=== PATIENT | male | born 1990 | race Caucasian/White ===

== ENCOUNTER 2018-12-06 17:35 | Emergency (ER) | payer SELFPAY ==
[~2018-12-06] VITALS: Ht 188 cm; Wt 133.8 kg
[2018-12-06] MEDS ORDERED: TETANUS,DIPTH,PERTUSS P/F (BOOSTRIX) 0.5 ML VIAL IM ONE (18:00)
[2018-12-06] MEDS ORDERED: LIDOCAINE 1% INJ 20 ML 20 ML VIAL INJ ONE (18:00)
--- NOTE | 2018-12-06 18:40 | ED Integumentary General ---
General Chief Complaint: Laceration Stated Complaint: L THUMB LAC Nursing Triage Note: AMBULATORY TO ED WITH C/O LAC TO LEFT THUMB AFTER CHOPPING SALAD. WRAPPED IN TOWEL FROM HOME. Source: patient Exam Limitations: no limitations History of Present Illness Date Seen by Provider: Dec 06, 2018 Time Seen by Provider: 17:49 Initial Comments 28-year-old male who presents to emergency room with complaints of laceration to his left thumb after chopping salad. He has a half circumferential laceration to his left thumb 1.5 cm and laceration with nail involvement. Timing/Duration: just prior to arrival Associated Symptoms: denies symptoms Allergies and Home Medications Allergies Coded Allergies: No Known Drug Allergies (Unverified , 12/06/18) Patient Home Medication List Home Medication List Reviewed: Yes Review of Systems Review of Systems Constitutional: see HPI; No chills, No fever Skin: see HPI, other (laceration to left thumb) All Other Systems Reviewed Negative Unless Noted: Yes Past Klvxene-Uvcqut-Nzgcsp Hx Past Med/Social Hx: Reviewed Nursing Past Med/Soc Hx Patient Social History Alcohol Use: Occasionally Uses Recreational Drug Use: Yes Drug of Choice: MARIJUANA Smoking Status: Current Someday Smoker Type Used: Electronic/Vapor Recent Foreign Travel: No Contact w/Someone Who Travel: No Recent Infectious Disease Expo: No Recent Hopitalizations: No Immunizations Up To Date Tetanus Booster (TDap): Less than 5yrs Seasonal Allergies Seasonal Allergies: No Past Medical History Surgeries: Yes (BILAT MENISCUS REPAIR) Orthopedic Respiratory: No Cardiac: Yes Hypertension Neurological: No Genitourinary: No Gastrointestinal: No Musculoskeletal: No Endocrine: No HEENT: No Cancer: No Psychosocial: No Integumentary: No Blood Disorders: No Family Medical History Reviewed Nursing Family Hx Physical Exam Vital Signs Vital Signs - First Documented 12/06/18 12/06/18 17:45 18:50 Temp 97.8 Pulse 68 Resp 18 B/P (MAP) 135/95 (108) Pulse Ox 100 Capillary Refill : Less Than 3 Seconds General Appearance: WD/WN, no apparent distress Cardiovascular: normal peripheral pulses, regular rate, rhythm, no edema, no gallop, no JVD, no murmur Respiratory: chest non-tender, lungs clear, normal breath sounds, no respiratory distress, no accessory muscle use Extremities: normal capillary refill Neurologic/Psychiatric: alert, normal mood/affect, oriented x 3 Skin: normal color, warm/dry Skin Problem Location: upper extremities (left thumb) Skin Problem Character: other (1.5 cm circumferential laceration to the left thumb) Procedures/Interventions Wound Location: Upper Extremities Other Wound Location Laceration left thumb Wound Length (cm): 1.5 Wound's Depth, Shape: superficial, nail-avulsed (partial) Wound Explored: clean Irrigated w/ Saline (ccs): 200 Betadine Prep?: Yes (Betasept) Anesthesia: 1% Lidocaine (without epinephrine) Volume Anesthetic (ccs): 2 Suture: Prolene Suture Size: 5-0 Number of Sutures: 4 Progress The wound was cleaned and irrigated with normal saline and Betasept. The laceration was anesthetized size with lidocaine without epinephrine approximately 2 ML's. The wound was closed with 4 simple interrupted sutures of 5-0 Prolene with one of the sutures being through the fingernail. Patient tolerated procedure well. Progress/Results/Core Measures Results/Orders My Orders Orders - JAVAN HICKMAN Lidocaine 1% Inj 20 Ml (Xylocaine 1% Inj (12/06/18 18:00) Dipht,Pertuss(Acell),Tet Adult (Boostrix (12/06/18 18:00) Vital Signs/I&O 12/06/18 12/06/18 17:45 18:50 Temp 97.8 97.8 Pulse 68 65 Resp 18 18 B/P (MAP) 135/95 (108) 130/85 (100) Pulse Ox 100 Blood Pressure Mean: 108 Departure Impression Primary Impression: Laceration Disposition: 01 HOME, SELF-CARE Condition: Stable/Unchanged Departure-Patient Inst. Decision time for Depature: 18:38 Referrals: NO,LOCAL PHYSICIAN (PCP/Family) Primary Care Physician Patient Instructions: Laceration Repair With Stitches (DC) Add. Discharge Instructions: Watch for signs of infection such as increased redness, swelling, drainage, pain. You may use Tylenol and ibuprofen as directed by the bottle for pain relief. Return back to the emergency room in 7 days to have the sutures removed. Do not submerge the thumb in any body of water. Change the dressing daily. All discharge instructions reviewed with patient and/or family. Voiced understanding. Images Extremities-Upper 1 - Laceration 1 - Laceration JAVAN HICKMAN Dec 06, 2018 18:40
[2018-12-06 18:50] VITALS: BP 130/85
--- OUTSIDE RECORDS SUMMARY | 2018-12-06 19:20 | XMS REPORT ---
Author Author YONI AMEZCUA Organization [facility] Address [address] [place] [address] Care Team Providers Care Animal Physiologist Name Role Phone YONI AMEZCUA Unavailable PROBLEMS Type Condition ICD9-CM Code [id number] Code Onset Dates Condition Status SNOMED Code Problem Morbid (severe) obesity due to excess calories E66.01 Active 587600697 Problem Essential hypertension I10 Active 57479789 Problem Bilateral carpal tunnel syndrome G56.03 Active [id number] ALLERGIES No Known Allergies SOCIAL HISTORY Never Assessed PLAN OF CARE VITAL SIGNS MEDICATIONS Unknown Medications RESULTS No Results PROCEDURES No Known procedures IMMUNIZATIONS No Known Immunizations MEDICAL (GENERAL) HISTORY Type Description Date Medical History hypertension Surgical History bilateral knee surgery-2006 and 2007 lateral miniscus
--- OUTSIDE RECORDS SUMMARY | 2018-12-06 19:20 | XMS REPORT ---
Author Author AMEZCUAYONI Caceres Organization [facility] Address [address] [place] [address] Care Team Providers Care Human Service Worker Name Role Phone AMEZCUANATALY CaceresELE Unavailable PROBLEMS Type Condition ICD9-CM Code [id number] Code Onset Dates Condition Status SNOMED Code Problem Morbid (severe) obesity due to excess calories E66.01 Active 038078541 Problem Essential hypertension I10 Active 25087092 Problem Bilateral carpal tunnel syndrome G56.03 Active [id number] ALLERGIES No Information SOCIAL HISTORY Never Assessed PLAN OF CARE VITAL SIGNS MEDICATIONS Unknown Medications RESULTS Name Result Date Reference Range THYROID ANALYZER 2016-12-01 TSH 2.480 0.450-4.500 A1C 2016-12-01 Hemoglobin A1c 5.3 4.8-5.6 CBC 2016-12-01 WBC 4.9 3.4-10.8 RBC 5.44 4.14-5.80 Hemoglobin 16.1 12.6-17.7 Hematocrit 48.7 37.5-51.0 MCV 90 79-97 MCH 29.6 26.6-33.0 MCHC 33.1 31.5-35.7 RDW 13.0 12.3-15.4 Platelets 244 150-379 Neutrophils 55 Lymphs 33 Monocytes 9 Eos 2 Basos 0 Neutrophils (Absolute) 2.7 1.4-7.0 Lymphs (Absolute) 1.7 0.7-3.1 Monocytes(Absolute) 0.4 0.1-0.9 Eos (Absolute) 0.1 0.0-0.4 Baso (Absolute) 0.0 0.0-0.2 Immature Granulocytes 1 Immature Grans (Abs) 0.0 0.0-0.1 LIPID PANEL 2016-12-01 Cholesterol, Total 235 100-199 Triglycerides 119 0-149 HDL Cholesterol 38 >39 VLDL Cholesterol Surya 24 5-40 LDL Cholesterol Calc 173 0-99 CMP 2016-12-01 Glucose, Serum 97 65-99 BUN 13 6-20 Creatinine, Serum 0.93 0.76-1.27 eGFR If NonAfricn Am 112 >59 eGFR If Africn Am 130 >59 BUN/Creatinine Ratio 14 9-20 Sodium, Serum 141 134-144 Potassium, Serum 4.6 3.5-5.2 Chloride, Serum 101 96-106 Carbon Dioxide, Total 24 18-29 Calcium, Serum 9.2 8.7-10.2 Protein, Total, Serum 6.4 6.0-8.5 Albumin, Serum 4.6 3.5-5.5 Globulin, Total 1.8 1.5-4.5 A/G Ratio 2.6 1.2-2.2 Bilirubin, Total 0.5 0.0-1.2 Alkaline Phosphatase, S 96 39-117 AST (SGOT) 25 0-40 ALT (SGPT) 44 0-44 PROCEDURES Procedure Date Ordered Result Body Site ASSAY THYROID STIM HORMONE December 01, 2016 GLYCATED HEMOGLOBIN TEST December 01, 2016 LIPID PANEL December 01, 2016 COMPLETE CBC W/AUTO DIFF WBC December 01, 2016 VENIPUNCT, ROUTINE* December 01, 2016 COMPREHEN METABOLIC PANEL December 01, 2016 IMMUNIZATIONS No Known Immunizations MEDICAL (GENERAL) HISTORY Type Description Date Medical History hypertension Surgical History bilateral knee surgery-2006 and 2008 lateral miniscus
--- OUTSIDE RECORDS SUMMARY | 2018-12-06 19:20 | XMS REPORT ---
Author Author AMEZCUAYOIN Caceres [facility] Address [address] [place] [address] Care Team Providers Care Flatwork Ironer Name Role Phone AMEZCUAYONI Caceres Unavailable PROBLEMS Type Condition ICD9-CM Code CAG35-AQ Code Onset Dates Condition Status SNOMED Code Problem Morbid (severe) obesity due to excess calories E66.01 Active 160822195 Problem Essential hypertension I10 Active 79829730 Problem Bilateral carpal tunnel syndrome G56.03 Active [id number] ALLERGIES No Known Allergies ENCOUNTERS Encounter Location Date Diagnosis [facility] [address] [address] 16 Aug, [address] [facility] [address] [address] 09 Aug, 2017 Cough R05 and Nonintractable episodic headache, unspecified headache type R51 [facility] [address] [address] Jul, Essential hypertension I10 and BMI 40.0-44.9, adult Z68.41 [facility] [address] [address] November, Encounter for routine adult health examination with abnormal findings Z00.01 and Essential hypertension I10 [facility] [address] [address] November, Encounter for routine adult health examination with abnormal findings Z00.01 ; Essential hypertension I10 ; Bilateral carpal tunnel syndrome G56.03 and Morbid (severe) obesity due to excess calories E66.01 [facility] [address] [place] [id number] [place] [id number] November, León THAKKAR [address] [facility] [id number] [place] [id number] Dec, Essential hypertension I10 [facility] [address] [place] [address] [id number] [place], [place] [id number] Dec, Essential hypertension I10 and Pulled muscle T14.8 IMMUNIZATIONS No Known Immunizations SOCIAL HISTORY Never Assessed REASON FOR VISIT Lab/3 month follow up and medication refill jeannette cochran PLAN OF CARE Activity Details Follow Up 3 Months Reason:CHM/HTN VITAL SIGNS Height 73.25 in 2017-07-15 Weight 315.1 lbs 2017-07-15 Temperature 98.8 degrees Fahrenheit 2017-07-15 Heart Rate 68 bpm 2017-07-15 Respiratory Rate 20 2017-07-15 BMI 41.28 kg/m2 2017-07-15 Blood pressure systolic 118 mmHg 2017-07-15 Blood pressure diastolic 70 mmHg 2017-07-15 MEDICATIONS Medication Instructions Dosage Frequency Start Date End Date Duration Status Fish Oil 1000 MG Orally Once a day 1 capsule 24h Active Vitamin B12 500 MCG Orally Once a day 2 tablets 24h Active Mucinex 600 MG Orally every 12 hrs 1 tablet as needed 12h Active Lisinopril 10 mg Orally Once a day 1 tablet 24h November, 90 days Active Lisinopril-Hydrochlorothiazide 10-12.5 MG Orally Once a day 1 tablet 24h Dec, 60 days Not-Taking RESULTS No Results PROCEDURES No Known procedures INSTRUCTIONS MEDICATIONS ADMINISTERED No Known Medications MEDICAL (GENERAL) HISTORY Type Description Date Medical History hypertension Surgical History bilateral knee surgery-2006 and 2007 lateral miniscus
== END 2018-12-06 18:51 | disposition home or self-care (01) ==
LOC: EDUNIT# 17:35 → ER 17:37
DX: S61.112A Laceration without foreign body of left thumb with damage to nail, initial encounter (principal); I10 Essential (primary) hypertension; F12.10 Cannabis abuse, uncomplicated; F17.290 Nicotine dependence, other tobacco product, uncomplicated; Z23 Encounter for immunization; Z98.890 Other specified postprocedural states; W26.8XXA Contact with other sharp object(s), not elsewhere classified, initial encounter; Y92.009 Unspecified place in unspecified non-institutional (private) residence as the place of occurrence of the external cause
CPT/HCPCS: 29130

== ENCOUNTER 2018-12-15 19:32 | Emergency (ER) | payer SELFPAY ==
[~2018-12-15] VITALS: Ht 188 cm; Wt 133.8 kg
[2018-12-15 19:45] VITALS: BP 145/90
== END 2018-12-15 19:46 | disposition home or self-care (01) ==
LOC: EDUNIT# 19:32 → ER 19:33
DX: S61.012D Laceration without foreign body of left thumb without damage to nail, subsequent encounter (principal); X58.XXXD Exposure to other specified factors, subsequent encounter

== ENCOUNTER 2020-04-03 14:53 | Emergency (ER) | payer SELFPAY ==
[~2020-04-03] VITALS: Ht 185.4 cm; Wt 136.0 kg
--- NOTE | 2020-04-03 14:55 | NUR ---
Neuro assessment performed by Ravinder Toure.
--- NOTE | 2020-04-03 15:04 | ED General ---
General Stated Complaint: HEAD INJ;LEFT FACIAL DROOP Source of Information: Patient Exam Limitations: No Limitations History of Present Illness Date Seen by Provider: Apr 03, 2020 Time Seen by Provider: 15:00 Initial Comments To ER by EMS with reports of headache, left-sided facial droop and left arm tingling. He did hit his head at work a few days ago and has a small abrasion to the forehead. This was on Tuesday. He has had no symptoms until today. He had just finished smoking marijuana when he saw a flash of light, felt a sharp pain in the left side of his head, felt like his left face was drooping and some tingling in the left arm. Upon arrival to ER he states that his vision is perfectly normal, his headache/pain is gone, does not feel like his face is drooping, but does have some persistent dullness to sensation in the left arm only. Timing/Duration: 1-2 Days Severity: Moderate Associated Systoms: Denies Symptoms Allergies and Home Medications Allergies Coded Allergies: No Known Drug Allergies (Unverified , 12/06/18) Patient Home Medication List Home Medication List Reviewed: Yes Review of Systems Review of Systems Constitutional: see HPI EENTM: see HPI Respiratory: no symptoms reported Cardiovascular: no symptoms reported Genitourinary: no symptoms reported Musculoskeletal: no symptoms reported Skin: no symptoms reported Psychiatric/Neurological: No Symptoms Reported Hematologic/Lymphatic: No Symptoms Reported Immunological/Allergic: no symptoms reported Past Dargzpo-Xcfryf-Eanxfb Hx Patient Social History Drug of Choice: MARIJUANA Type Used: Electronic/Vapor Recent Foreign Travel: No Contact w/Someone Who Travel: No Recent Hopitalizations: No Immunizations Up To Date Tetanus Booster (TDap): Less than 5yrs Seasonal Allergies Seasonal Allergies: No Past Medical History Surgeries: Yes (BILAT MENISCUS REPAIR) Orthopedic Respiratory: No Cardiac: Yes Hypertension Neurological: No Genitourinary: No Gastrointestinal: No Musculoskeletal: No Endocrine: No HEENT: No Cancer: No Psychosocial: No Integumentary: No Blood Disorders: No Physical Exam Vital Signs Vital Signs - First Documented 04/03/20 14:53 Temp 37.4 Pulse 118 Resp 20 B/P (MAP) 143/101 (115) Pulse Ox 96 O2 Delivery Room Air Capillary Refill : Height, Weight, BMI Height: 6'2.00" Weight: 295lbs. oz. 133.712165vf; 35.15 BMI Method:Stated General Appearance: No Apparent Distress, WD/WN, Anxious (he is anxious becka earing, talks at a high rate of speed), Obese Eyes: Bilateral Eye Normal Inspection, Bilateral Eye PERRL, Bilateral Eye Other (visual changes) HEENT: PERRL/EOMI, TMs Normal, Other (small abrasion to the midline of the forehead without swelling) Neck: Full Range of Motion, Normal Inspection Respiratory: No Accessory Muscle Use, No Respiratory Distress Cardiovascular: Regular Rate, Rhythm, Normal Peripheral Pulses Gastrointestinal: Non Tender, Soft Extremity: Normal Capillary Refill, Normal Inspection Neurologic/Psychiatric: Alert, Oriented x3 Skin: Normal Color, Warm/Dry Procedures/Interventions Suture Size: 5-0 Progress/Results/Core Measures Suspected Sepsis SIRS Temperature: Pulse: Respiratory Rate: Laboratory Tests 04/03/20 15:05: White Blood Count 4.9 Blood Pressure / Mean: Laboratory Tests 04/03/20 15:05: Creatinine 0.98, INR Comment 1.0, Platelet Count 216, Total Bilirubin 0.8 Results/Orders Lab Results Laboratory Tests Test 04/03/20 15:05 04/03/20 15:21 04/03/20 15:45 Range/Units White Blood Count 4.9 4.3-11.0 10^3/uL Red Blood Count 5.29 4.30-5.52 10^6/uL Hemoglobin 15.6 13.3-17.7 g/dL Hematocrit 47 40-54 % Mean Corpuscular Volume 88 80-99 fL Mean Corpuscular Hemoglobin 30 25-34 pg Mean Corpuscular Hemoglobin Concent 33 32-36 g/dL Red Cell Distribution Width 11.9 10.0-14.5 % Platelet Count 216 130-400 10^3/uL Mean Platelet Volume 9.5 9.0-12.2 fL Immature Granulocyte % (Auto) 1 % Neutrophils (%) (Auto) 50 42-75 % Lymphocytes (%) (Auto) 40 12-44 % Monocytes (%) (Auto) 8 0-12 % Eosinophils (%) (Auto) 1 0-10 % Basophils (%) (Auto) 0 0-10 % Neutrophils # (Auto) 2.4 1.8-7.8 10^3/uL Lymphocytes # (Auto) 1.9 1.0-4.0 10^3/uL Monocytes # (Auto) 0.4 0.0-1.0 10^3/uL Eosinophils # (Auto) 0.1 0.0-0.3 10^3/uL Basophils # (Auto) 0.0 0.0-0.1 10^3/uL Immature Granulocyte # (Auto) 0.1 0.0-0.1 10^3/uL Prothrombin Time 13.2 12.2-14.7 SEC INR Comment 1.0 0.8-1.4 Activated Partial Thromboplast Time 24 24-35 SEC D-Dimer <= 0.27 0.00-0.49 UG/ML Sodium Level 139 135-145 MMOL/L Potassium Level 3.1 L 3.6-5.0 MMOL/L Chloride Level 105 98-107 MMOL/L Carbon Dioxide Level 20 L 21-32 MMOL/L Anion Gap 14 5-14 MMOL/L Blood Urea Nitrogen 17 7-18 MG/DL Creatinine 0.98 0.60-1.30 MG/DL Estimat Glomerular Filtration Rate > 60 BUN/Creatinine Ratio 17 Glucose Level 140 H 70-105 MG/DL Calcium Level 9.0 8.5-10.1 MG/DL Corrected Calcium 8.5-10.1 MG/DL Total Bilirubin 0.8 0.1-1.0 MG/DL Aspartate Amino Transf (AST/SGOT) 27 5-34 U/L Alanine Aminotransferase (ALT/SGPT) 35 0-55 U/L Alkaline Phosphatase 83 40-136 U/L Troponin I < 0.028 <0.028 NG/ML Total Protein 6.8 6.4-8.2 GM/DL Albumin 4.6 H 3.2-4.5 GM/DL Glucometer 132 H 70-110 MG/DL My Orders Orders - JAYLA QUEEN APRN Cbc With Automated Diff (04/03/20 14:58) Protime With Inr (04/03/20 14:58) Partial Thromboplastin Time (04/03/20 14:58) Comprehensive Metabolic Panel (04/03/20 14:58) Fibrin Degradation Products (04/03/20 14:58) Troponin I (04/03/20 14:58) Ua Culture If Indicated (04/03/20 14:58) Chest 1 View, Ap/Pa Only (04/03/20 14:58) Ekg Tracing (04/03/20 14:58) Nothing By Mouth (04/03/20 Lunch) Accucheck Stat ONCE (04/03/20 14:58) Ed Iv/Invasive Line Start (04/03/20 14:58) Vital Signs Stroke Patient Q15M (04/03/20 14:58) O2 (04/03/20 14:58) Monitor-Rhythm Ecg Trace Only (04/03/20 14:58) Dysphagia Screening Tool (04/03/20 14:58) Lipid Panel (04/04/20 06:00) Ct Angio Head/Neck (04/03/20 14:58) Lorazepam Injection (Ativan Injection) (04/03/20 15:15) Drug Screen Stat (Urine) (04/03/20 15:04) Iohexol Injection (Omnipaque 350 Mg/Ml 1 (04/03/20 15:15) Received Contrast (Hold Metformin- Contr (04/03/20 15:15) Ns (Ivpb) (Sodium Chloride 0.9% Ivpb Bag (04/03/20 15:15) Medications Given in ED Current Medications Medications Dose Ordered Sig/Sameer Route Start Time Stop Time Status Last Admin Dose Admin Iohexol 75 ml ONCE ONCE IV 04/03/20 15:15 04/03/20 15:16 DC 04/03/20 15:26 75 ML Sodium Chloride 100 ml ONCE ONCE IV 04/03/20 15:15 04/03/20 15:16 DC 04/03/20 15:26 80 ML Vital Signs/I&O 04/03/20 14:53 Temp 37.4 Pulse 118 Resp 20 B/P (MAP) 143/101 (115) Pulse Ox 96 O2 Delivery Room Air Capillary Refill : Diagnostic Imaging Diagonstic Imaging: CT Comments NAME: ALESHA CASEY [facility] REC#: [id number] PT STATUS: REG ER : 1990 PHYSICIAN: JAYLA QUEEN APRN ADMIT DATE: 04/03/20/ER Signed Date of Exam:04/03/20 CT ANGIO HEAD/NECK PROCEDURE: CT angiography of the head and CT angiography of the neck with and without contrast. TECHNIQUE: Contiguous noncontrast images were obtained from the skull base through the vertex. After intravenous contrast administration, helical CT angiography of the neck was performed. Source data was reformatted into 3D MIP projections. Delayed post contrast acquisition was also obtained. Auto Exposure Controls were utilized during the CT exam to meet ALARA standards for radiation dose reduction. INDICATION: Left facial numbness. COMPARISON: No prior studies are available for comparison. FINDINGS: The pre contrast head CT demonstrates ventricles and sulci to be within normal limits. No sulcal effacement or midline shift is identified. No acute intra-axial or extra-axial hemorrhage is detected. Cisterns are patent. Visualized paranasal sinuses are clear. Delayed post contrast images are without abnormal enhancement. CT angiographic portion of the exam demonstrates a three-vessel branching pattern to the aortic arch. The carotid bifurcations are unremarkable. Right and left internal carotid arteries appear to be patent. Carotid siphons are unremarkable. The M1 and M2 branches of the middle cerebral arteries bilaterally are patent. No large branch occlusion is seen. There is no filling defect or thromboembolism. Right and left anterior cerebral arteries are widely patent. Left posterior cerebral artery is patent. There is origin to the right posterior cerebral artery with a patent PCOM. IMPRESSION: Unremarkable CT angiogram of the head and neck. No thromboembolism or large branch occlusion is identified. Dictated by: Dictated on workstation # [id number] Dict: 04/03/20 1549 Trans: 04/03/20 1601 [id number] [id number] Interpreted by: BRADLEY BENJAMIN MD Electronically signed by: BRADLEY BENJAMIN MD 04/03/20 1601 Departure Communication (Admissions) 1504-Gets an NIH of 1 for mild sensory loss left forearm. When advising pt that there is no apparent facial droop he replies "shit, maybe im just high". Impression Primary Impression: Paresthesia and pain of left extremity Additional Impression: Marijuana use Disposition: HOME, SELF-CARE Condition: Stable Departure-Patient Inst. Decision time for Depature: 16:07 Referrals: NO,LOCAL PHYSICIAN (PCP/Family) Primary Care Physician Patient Instructions: Paresthesia (DC) Add. Discharge Instructions: 1. Return to ER for any concerns 2. Follow-up with your doctor next week 3. NIH Stroke Scale NIH : Select: Initial Level of Consciousness: 0=Alert Level of Consciousness-Questio: 0=Answers both month/age LOC Commands: 0=Performs both tasks Gaze: 0=Normal Visual [place]: 0=No visual loss Facial Movement (Facial Paresi: 0=Normal symmetrical mnt Motor Function-Arms Right: 0=No drift Motor Function-Arms Left: 0=No drift Motor Function-Legs Right: 0=No drift Motor Function-Legs Left: 0=No drift Limb Ataxia: 0=Absent Sensory: 1=Mild to Moderate loss Best Language: 0=No aphasia Dysarthria: 0=Normal Extinction & Inattention: 0=No abnormality NIH Stroke Scale Score: 1 JAYLA QUEEN [employer]LECTRONICS MANUFACTURER Apr 03, 2020 15:04
[2020-04-03 15:13] LABS: BASOPHILS % (AUTO) 0 % (0-10); EOSINOPHILS # (AUTO) 0.1 10^3/uL (0.0-0.3); EOSINOPHILS % (AUTO) 1 % (0-10); HEMATOCRIT 47 % (40-54); HEMOGLOBIN 15.6 g/dL (13.3-17.7); LYMPHOCYTES # (AUTO) 1.9 10^3/uL (1.0-4.0); LYMPHOCYTES % (AUTO) 40 % (12-44); MEAN CORPUSCULAR HEMOGLOBIN 30 pg (25-34); MEAN CORPUSCULAR HGB CONC 33 g/dL (32-36); MEAN CORPUSCULAR VOLUME 88 fL (80-99); MEAN PLATELET VOLUME 9.5 fL (9.0-12.2); MONOCYTES # (AUTO) 0.4 10^3/uL (0.0-1.0); MONOCYTES % (AUTO) 8 % (0-12); NEUTROPHILS # (AUTO) 2.4 10^3/uL (1.8-7.8); NEUTROPHILS % (AUTO) 50 % (42-75); PLATELET COUNT 216 10^3/uL (130-400); WHITE BLOOD COUNT 4.9 10^3/uL (4.3-11.0)
[2020-04-03] MEDS ORDERED: HOLD METFORMIN - RECEIVED CONTRAST 20 ML VIAL IV SCH (15:15)
[2020-04-03] MEDS ORDERED: NS 100 ML (IVPB) BAG IV ONE (15:15)
[2020-04-03] MEDS ORDERED: LORazepam INJ 2 MG/ML (ATIVAN) VIAL IVP PRN (15:15)
[2020-04-03] MEDS ORDERED: IOHEXOL 350 MG/ML 100 ML (OMNIPAQUE 350) VIAL IV ONE (15:15)
[2020-04-03 15:22] LABS: ALBUMIN 4.6 GM/DL (3.2-4.5)
[2020-04-03 15:23] LABS: CHLORIDE 105 MMOL/L (98-107); POTASSIUM 3.1 MMOL/L (3.6-5.0); SODIUM 139 MMOL/L (135-145)
[2020-04-03 15:25] LABS: GLUCOSE 140 MG/DL (70-105); TOTAL PROTEIN 6.8 GM/DL (6.4-8.2)
[2020-04-03 15:26] LABS: CARBON DIOXIDE 20 MMOL/L (21-32)
[2020-04-03 15:27] LABS: BILIRUBIN,TOTAL 0.8 MG/DL (0.1-1.0)
[2020-04-03 15:28] LABS: ALKALINE PHOSPHATASE 83 U/L (40-136)
[2020-04-03 15:29] LABS: CREATININE SERUM 0.98 MG/DL (0.60-1.30); FIBRIN DEGRADATION PRODUCTS <= 0.27 UG/ML (0.00-0.49); GFR ESTIMATED > 60; PARTIAL THROMBOPLASTIN TIME 24 SEC (24-35); PROTHROMBIN TIME PATIENT 13.2 SEC (12.2-14.7)
--- NOTE | 2020-04-03 15:29 | Diagnostic Imaging Report ---
EXAMINATION: Chest 1 view. HISTORY: Left arm tingling. COMPARISON: None available. FINDINGS: The lung volumes are normal. No focal consolidation is seen. No large pleural effusion or pneumothorax is seen. The cardiomediastinal silhouette is normal in size and contour. No acute osseous abnormality is seen. IMPRESSION: No acute pleuroparenchymal process. Dictated by: Dictated on workstation # [id number]
[2020-04-03 15:30] LABS: BUN/CREATININE RATIO 17
[2020-04-03 15:32] LABS: ALANINE AMINOTRANSFERASE 35 U/L (0-55)
[2020-04-03 15:50] LABS: BILIRUBIN,URINE NEGATIVE (NEGATIVE); CLARITY,URINE CLEAR; COLOR,URINE YELLOW; GLUCOSE, URINE (UA) NEGATIVE (NEGATIVE); KETONES,URINE NEGATIVE (NEGATIVE); LEUKOCYTE ESTERASE ,URINE NEGATIVE (NEGATIVE); NITRITE,URINE NEGATIVE (NEGATIVE); PROTEIN,URINE NEGATIVE (NEGATIVE)
--- NOTE | 2020-04-03 16:00 | Diagnostic Imaging Report ---
PROCEDURE: CT angiography of the head and CT angiography of the neck with and without contrast. TECHNIQUE: Contiguous noncontrast images were obtained from the skull base through the vertex. After intravenous contrast administration, helical CT angiography of the neck was performed. Source data was reformatted into 3D MIP projections. Delayed post contrast acquisition was also obtained. Auto Exposure Controls were utilized during the CT exam to meet ALARA standards for radiation dose reduction. INDICATION: Left facial numbness. COMPARISON: No prior studies are available for comparison. FINDINGS: The pre contrast head CT demonstrates ventricles and sulci to be within normal limits. No sulcal effacement or midline shift is identified. No acute intra-axial or extra-axial hemorrhage is detected. Cisterns are patent. Visualized paranasal sinuses are clear. Delayed post contrast images are without abnormal enhancement. CT angiographic portion of the exam demonstrates a three-vessel branching pattern to the aortic arch. The carotid bifurcations are unremarkable. Right and left internal carotid arteries appear to be patent. Carotid siphons are unremarkable. The M1 and M2 branches of the middle cerebral arteries bilaterally are patent. No large branch occlusion is seen. There is no filling defect or thromboembolism. Right and left anterior cerebral arteries are widely patent. Left posterior cerebral artery is patent. There is origin to the right posterior cerebral artery with a patent PCOM. IMPRESSION: Unremarkable CT angiogram of the head and neck. No thromboembolism or large branch occlusion is identified. Dictated by: Dictated on workstation # [id number]
[2020-04-03 16:01] LABS: BACTERIA,URINE TRACE /HPF
[2020-04-03 16:07] LABS: GRANULAR CASTS,URINE 0-2 /LPF
[2020-04-03 16:08] LABS: AMPHETAMINE SCREEN, URINE NEGATIVE (NEGATIVE); BARBITURATE SCREEN URINE NEGATIVE (NEGATIVE); BENZODIAZEPINES SCREEN URINE NEGATIVE (NEGATIVE); CANNABINOID SCREEN, URINE POSITIVE (NEGATIVE); COCAINE SCREEN URINE NEGATIVE (NEGATIVE); METHADONE STAT NEGATIVE (NEGATIVE); METHAMPHETAMINE SCREEN URINE S NEGATIVE (NEGATIVE); OPIATE SCREEN URINE NEGATIVE (NEGATIVE); OXYCODONE STAT NEGATIVE (NEGATIVE); PROPOXYPHENE STAT NEGATIVE (NEGATIVE); TRICYCLIC ANTIDEPRESSANTS SCRE NEGATIVE (NEGATIVE)
[2020-04-03 16:15] VITALS: BP 140/91
== END 2020-04-03 16:16 | disposition home or self-care (01) ==
LOC: EDUNIT# 14:53 → ER 14:54
DX: R20.2 Paresthesia of skin (principal); F12.90 Cannabis use, unspecified, uncomplicated; S00.81XA Abrasion of other part of head, initial encounter; I10 Essential (primary) hypertension; W22.8XXA Striking against or struck by other objects, initial encounter; Y92.59 Other trade areas as the place of occurrence of the external cause
CPT/HCPCS: 36415; 70496; 70498; 71045; 80053; 80306; 81000; 82962; 84484; 85025; 85379; 85610; 85730; 93005; 93041

== ENCOUNTER 2021-01-09 20:06 | Emergency (ER) | payer BC ==
[~2021-01-09] VITALS: Ht 186 cm; Wt 146.2 kg
--- NOTE | 2021-01-09 21:09 | ED Cardiac General ---
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 DENIES PAIN AT THIS TIME. Source: patient Exam Limitations: no limitations History of Present Illness Date Seen by Provider: Jan 09, 2021 Time Seen by Provider: 20:29 Initial Comments Patient ER by private conveyance chief complaint that after smoking some weed eating a hamburger and playing video games he felt his heart racing. He had episodes like this throughout his life. No family history of this of the hypertension. He has a known history of hypertension throughout high school and was on medicines but lost his insurance and was lost to follow-up. He has not had this checked out since. Today he decided he wanted come in and get it checked out. He is not having any chest pain nausea fever chills cough shortness of air weakness nausea. After resting the symptoms went away. Allergies and Home Medications Allergies Coded Allergies: No Known Drug Allergies (Unverified , 12/06/18) Home Medications No Active Prescriptions or Reported Meds Patient Home Medication List Home Medication List Reviewed: Yes Review of Systems Review of Systems Constitutional: No chills, No diaphoresis EENTM: No Blurred Vision, No Double Vision Respiratory: Denies Cough, Denies Shortness of Air Cardiovascular: Denies Chest Pain, Denies Lightheadedness Gastrointestinal: Denies Constipated, Denies Diarrhea, Denies Nausea, Denies Vomiting Genitourinary: Denies Discharge, Denies Drainage Musculoskeletal: No back pain, No joint pain Skin: No pruritus, No rash Psychiatric/Neurological: Denies Headache, Denies Numbness All Other Systems Reviewed Negative Unless Noted: Yes Past Gwxreym-Kwohyh-Bnauum Hx Patient Social History Tobacco Use?: No Substance use?: Yes Substance type: Marijuana Alcohol Use?: Yes Alcohol Frequency: Once in a while Pt feels they are or have been: No Immunizations Up To Date Tetanus Booster (TDap): Less than 5yrs Seasonal Allergies Seasonal Allergies: No Past Medical History Surgeries: Yes (BILAT MENISCUS REPAIR, wisdom teeth) Orthopedic Respiratory: No Cardiac: Yes Hypertension Neurological: No Genitourinary: No Gastrointestinal: No Musculoskeletal: No Endocrine: No HEENT: No Cancer: No Psychosocial: No Integumentary: No Blood Disorders: No Physical Exam Vital Signs Vital Signs - First Documented 01/09/21 20:11 Temp 36.8 Pulse 108 Resp 18 B/P (MAP) 161/105 (123) Pulse Ox 98 O2 Delivery Room Air Capillary Refill : Less Than 3 Seconds Height, Weight, BMI Height: 6'2.00" Weight: 295lbs. oz. 133.110957fd; 42.00 BMI Method:Stated General Appearance: WD/WN, Anxious HEENT: PERRL/EOMI, Pharynx Normal, Moist Mucous Membranes Neck: Normal Inspection, Non Tender Respiratory: Lungs Clear, Normal Breath Sounds, No Accessory Muscle Use, No Respiratory Distress Cardiovascular: Regular Rate, Rhythm, No Edema, Normal Peripheral Pulses Extremity: Normal Capillary Refill, Normal Inspection Neurologic/Psychiatric: Alert, Oriented x3 Skin: Normal Color, Warm/Dry Procedures/Interventions Suture Size: 5-0 Progress/Results/Core Measures Results/Orders Lab Results Laboratory Tests Test 01/09/21 21:16 Range/Units White Blood Count 5.6 4.3-11.0 10^3/uL Red Blood Count 5.26 4.30-5.52 10^6/uL Hemoglobin 16.0 13.3-17.7 g/dL Hematocrit 47 40-54 % Mean Corpuscular Volume 90 80-99 fL Mean Corpuscular Hemoglobin 30 25-34 pg Mean Corpuscular Hemoglobin Concent 34 32-36 g/dL Red Cell Distribution Width 11.7 10.0-14.5 % Platelet Count 232 130-400 10^3/uL Mean Platelet Volume 10.1 9.0-12.2 fL Immature Granulocyte % (Auto) 1 % Neutrophils (%) (Auto) 63 42-75 % Lymphocytes (%) (Auto) 26 12-44 % Monocytes (%) (Auto) 8 0-12 % Eosinophils (%) (Auto) 2 0-10 % Basophils (%) (Auto) 0 0-10 % Neutrophils # (Auto) 3.5 1.8-7.8 10^3/uL Lymphocytes # (Auto) 1.4 1.0-4.0 10^3/uL Monocytes # (Auto) 0.5 0.0-1.0 10^3/uL Eosinophils # (Auto) 0.1 0.0-0.3 10^3/uL Basophils # (Auto) 0.0 0.0-0.1 10^3/uL Immature Granulocyte # (Auto) 0.1 0.0-0.1 10^3/uL Sodium Level 141 135-145 MMOL/L Potassium Level 4.0 3.6-5.0 MMOL/L Chloride Level 108 H 98-107 MMOL/L Carbon Dioxide Level 23 21-32 MMOL/L Anion Gap 10 5-14 MMOL/L Blood Urea Nitrogen 11 7-18 MG/DL Creatinine 0.92 0.60-1.30 MG/DL Estimat Glomerular Filtration Rate > 60 BUN/Creatinine Ratio 12 Glucose Level 124 H 70-105 MG/DL Calcium Level 9.4 8.5-10.1 MG/DL Corrected Calcium 9.2 8.5-10.1 MG/DL Total Bilirubin 0.3 0.1-1.0 MG/DL Aspartate Amino Transf (AST/SGOT) 17 5-34 U/L Alanine Aminotransferase (ALT/SGPT) 36 0-55 U/L Alkaline Phosphatase 105 40-136 U/L Troponin I < 0.028 <0.028 NG/ML C-Reactive Protein High Sensitivity 0.15 0.00-0.50 MG/DL Total Protein 6.4 6.4-8.2 GM/DL Albumin 4.2 3.2-4.5 GM/DL My Orders Orders - YOBANY REEVES Continuous Ekg Monitoring (01/09/21 21:03) Ekg Tracing (01/09/21 21:03) Cbc With Automated Diff (01/09/21 21:11) Comprehensive Metabolic Panel (01/09/21 21:11) Troponin I (01/09/21 21:11) Hs C Reactive Protein (01/09/21 21:11) Chest 1 View, Ap/Pa Only (01/09/21 21:11) Vital Signs/I&O 01/09/21 20:11 Temp 36.8 Pulse 108 Resp 18 B/P (MAP) 161/105 (123) Pulse Ox 98 O2 Delivery Room Air Blood Pressure Mean: 123 Progress Progress Note : Time: 21:15 Progress Note After his original presentation blood pressure 160/100 on rest he went down to 138/90. His heart rate has also gone down into the 80s. He certainly has a lot of anxiety however is not impossible that he has some kind of tachydysrhythmia so an EKG and some basic labs were obtained. If we did not catch anything on the monitor while he is here then we can send him on to either cardiology or encouraged him to follow-up with a primary care doctor for outpatient work-up. Initial ECG Impression Date: Jan 09, 2021 Initial ECG Impression Time: 21:08 Initial ECG Rate: 86 Initial ECG Rhythm: Normal Sinus Initial ECG Intervals: Normal Initial ECG Impression: Normal Comment Normal sinus rhythm without clinically relevant ST elevation or depression. Diagnostic Imaging Diagonstic Imaging: Xray Plain Films/CT/US/NM/MRI: chest Comments NAME: [facility] REC#: [id number] PT STATUS: REG ER : 1990 PHYSICIAN: YOBANY REEVES MD ADMIT DATE: 01/09/21/ER Draft Date of Exam:01/09/21 CHEST 1 VIEW, AP/PA ONLY Clinical indication: Patient with hypertension and heart racing. Exam: Portable chest x-ray upright view. Comparisons: Chest x-ray dated 04/03/2020. Findings: Lungs/pleura: Lungs are clear. There is no pneumothorax. There is no pleural effusion. Mediastinum: Unremarkable. Pulmonary vasculature: Unremarkable. Heart: Unremarkable. Bones/extrathoracic soft tissue: Unremarkable. Impression: There is no radiographic evidence of acute cardiopulmonary process. Dictated on workstation # [id number] Dict: 01/09/212129 Trans: 01/09/212134 [facility] [id number] Interpreted by: AIMEE HWANG MD Electronically signed by: Reviewed: Reviewed by Me Departure Impression Primary Impression: Palpitations Disposition: 01 HOME, SELF-CARE Condition: Stable Departure-Patient Inst. Decision time for Depature: 21:50 Referrals: TYLER ROMO MD NO,LOCAL PHYSICIAN (PCP) Primary Care Physician Patient Instructions: Palpitations (DC) Add. Discharge Instructions: I encourage you to follow-up with a primary care doctor of your choice. 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 Romo. If you have another episode of this go to your doctor and have them obtain an EKG while you are having the episode. Alternatively you may return to the ER if you are having this persistent episode. You may try blowing through an imagined coffee stir at a candle from across the room and bear down hard in your abdomen to try and stop the palpitations. If you start to have persistent chest pain, shortness of air or other worrisome symptoms then I encourage you to return to the ER promptly. All discharge instructions reviewed with patient and/or family. Voiced understanding. Scripts No Active Prescriptions or Reported Meds Copy Copies To 1: TYLER ROMO MD, TITUS J Jan 09, 2021 21:08
[2021-01-09 21:20] LABS: BASOPHILS % (AUTO) 0 % (0-10); EOSINOPHILS # (AUTO) 0.1 10^3/uL (0.0-0.3); EOSINOPHILS % (AUTO) 2 % (0-10); HEMATOCRIT 47 % (40-54); LYMPHOCYTES # (AUTO) 1.4 10^3/uL (1.0-4.0); LYMPHOCYTES % (AUTO) 26 % (12-44); MEAN CORPUSCULAR HEMOGLOBIN 30 pg (25-34); MEAN CORPUSCULAR HGB CONC 34 g/dL (32-36); MEAN CORPUSCULAR VOLUME 90 fL (80-99); MEAN PLATELET VOLUME 10.1 fL (9.0-12.2); MONOCYTES # (AUTO) 0.5 10^3/uL (0.0-1.0); MONOCYTES % (AUTO) 8 % (0-12); NEUTROPHILS # (AUTO) 3.5 10^3/uL (1.8-7.8); NEUTROPHILS % (AUTO) 63 % (42-75); PLATELET COUNT 232 10^3/uL (130-400); WHITE BLOOD COUNT 5.6 10^3/uL (4.3-11.0)
--- NOTE | 2021-01-09 21:35 | Diagnostic Imaging Report ---
Clinical indication: Patient with hypertension and heart racing. Exam: Portable chest x-ray upright view. Comparisons: Chest x-ray dated 04/03/2020. Findings: Lungs/pleura: Lungs are clear. There is no pneumothorax. There is no pleural effusion. Mediastinum: Unremarkable. Pulmonary vasculature: Unremarkable. Heart: Unremarkable. Bones/extrathoracic soft tissue: Unremarkable. Impression: There is no radiographic evidence of acute cardiopulmonary process. Dictated by: Dictated on workstation # [id number]
[2021-01-09 21:39] LABS: ALANINE AMINOTRANSFERASE 36 U/L (0-55); ALBUMIN 4.2 GM/DL (3.2-4.5); ALKALINE PHOSPHATASE 105 U/L (40-136); BILIRUBIN,TOTAL 0.3 MG/DL (0.1-1.0); BUN/CREATININE RATIO 12; CALCIUM 9.4 MG/DL (8.5-10.1); CARBON DIOXIDE 23 MMOL/L (21-32); CHLORIDE 108 MMOL/L (98-107); CREATININE SERUM 0.92 MG/DL (0.60-1.30); GFR ESTIMATED > 60; GLUCOSE 124 MG/DL (70-105); SODIUM 141 MMOL/L (135-145); TOTAL PROTEIN 6.4 GM/DL (6.4-8.2)
[2021-01-09 21:54] VITALS: BP 131/90
== END 2021-01-09 21:55 | disposition home or self-care (01) ==
LOC: EDUNIT# 20:06 → ER 20:08
DX: R00.2 Palpitations (principal); I10 Essential (primary) hypertension
CPT/HCPCS: 36415; 71045; 80053; 84484; 85025; 86141; 93041

== ENCOUNTER 2021-01-25 21:40 | Emergency (ER) | payer BC ==
[~2021-01-25] VITALS: Ht 186.7 cm; Wt 134.1 kg
[2021-01-25 23:01] LABS: BASOPHILS % (AUTO) 1 % (0-10); EOSINOPHILS # (AUTO) 0.1 10^3/uL (0.0-0.3); EOSINOPHILS % (AUTO) 2 % (0-10); HEMATOCRIT 46 % (40-54); HEMOGLOBIN 15.5 g/dL (13.3-17.7); LYMPHOCYTES # (AUTO) 2.1 10^3/uL (1.0-4.0); LYMPHOCYTES % (AUTO) 39 % (12-44); MEAN CORPUSCULAR HEMOGLOBIN 30 pg (25-34); MEAN CORPUSCULAR HGB CONC 34 g/dL (32-36); MEAN CORPUSCULAR VOLUME 90 fL (80-99); MEAN PLATELET VOLUME 9.9 fL (9.0-12.2); MONOCYTES # (AUTO) 0.5 10^3/uL (0.0-1.0); MONOCYTES % (AUTO) 9 % (0-12); NEUTROPHILS # (AUTO) 2.7 10^3/uL (1.8-7.8); NEUTROPHILS % (AUTO) 49 % (42-75); PLATELET COUNT 219 10^3/uL (130-400); WHITE BLOOD COUNT 5.5 10^3/uL (4.3-11.0)
[2021-01-25 23:13] LABS: ALBUMIN 4.4 GM/DL (3.2-4.5); CHLORIDE 106 MMOL/L (98-107); POTASSIUM 3.9 MMOL/L (3.6-5.0); SODIUM 142 MMOL/L (135-145)
[2021-01-25 23:14] LABS: CALCIUM 8.9 MG/DL (8.5-10.1)
[2021-01-25 23:15] LABS: GLUCOSE 101 MG/DL (70-105)
[2021-01-25 23:16] LABS: TOTAL PROTEIN 6.6 GM/DL (6.4-8.2)
[2021-01-25 23:17] LABS: CARBON DIOXIDE 22 MMOL/L (21-32); PROTHROMBIN TIME PATIENT 13.7 SEC (12.2-14.7)
[2021-01-25 23:18] LABS: BILIRUBIN,TOTAL 0.5 MG/DL (0.1-1.0)
[2021-01-25 23:19] LABS: ALKALINE PHOSPHATASE 85 U/L (40-136); CREATININE SERUM 0.87 MG/DL (0.60-1.30); GFR ESTIMATED 102
[2021-01-25 23:20] LABS: BUN/CREATININE RATIO 20; MAGNESIUM 2.1 MG/DL (1.6-2.4)
[2021-01-25 23:21] LABS: AMPHETAMINE SCREEN, URINE NEGATIVE (NEGATIVE); BARBITURATE SCREEN URINE NEGATIVE (NEGATIVE); BENZODIAZEPINES SCREEN URINE NEGATIVE (NEGATIVE); CANNABINOID SCREEN, URINE POSITIVE (NEGATIVE); COCAINE SCREEN URINE NEGATIVE (NEGATIVE); METHADONE STAT NEGATIVE (NEGATIVE); METHAMPHETAMINE SCREEN URINE S NEGATIVE (NEGATIVE); OPIATE SCREEN URINE NEGATIVE (NEGATIVE); OXYCODONE STAT NEGATIVE (NEGATIVE); PROPOXYPHENE STAT NEGATIVE (NEGATIVE); TRICYCLIC ANTIDEPRESSANTS SCRE NEGATIVE (NEGATIVE)
[2021-01-25 23:22] LABS: ALANINE AMINOTRANSFERASE 33 U/L (0-55)
--- NOTE | 2021-01-25 23:40 | ED Cardiac General ---
History of Present Illness General Chief Complaint: General Problems/Pain Stated Complaint: PECTORAL PAIN/ NOTICED VEINS Nursing Triage Note: pt has had pain in left chest wall below pec. he reports he can feel swollen veins under the skin. has one bruise of unknown origin on right forearm. c/o bilat let pain. left arm pain, but he does admit to carpal tunnel. reports all of these symptoms are giving him anxiety. Allergies and Home Medications Allergies Coded Allergies: No Known Drug Allergies (Unverified , 12/06/18) Home Medications No Active Prescriptions or Reported Meds Past Jaipdot-Cqvmya-Zesgpd Hx Patient Social History Tobacco Use?: No Smoking Status: Former Smoker Substance use?: Yes Alcohol Use?: Yes Alcohol type: Beer Alcohol Frequency: Rarely Immunizations Up To Date Tetanus Booster (TDap): Less than 5yrs Seasonal Allergies Seasonal Allergies: No Past Medical History Surgery/Hospitalization HX: seen in ER last week for similar c/o Surgeries: Yes (BILAT MENISCUS REPAIR, wisdom teeth) Orthopedic Respiratory: No Cardiac: Yes Hypertension Neurological: No Genitourinary: No Gastrointestinal: No Musculoskeletal: No Endocrine: No HEENT: No Cancer: No Psychosocial: No Integumentary: No Blood Disorders: No Physical Exam Vital Signs Vital Signs - First Documented 01/25/21 22:27 Temp 36.9 Pulse 73 Resp 18 B/P (MAP) 142/98 (113) Pulse Ox 97 O2 Delivery Room Air Capillary Refill : Less Than 3 Seconds Height, Weight, BMI Height: 6'2.00" Weight: 295lbs. oz. 133.718817wd; 38.00 BMI Method:Stated Procedures/Interventions Suture Size: 5-0 Progress/Results/Core Measures Results/Orders Lab Results Laboratory Tests Test 01/25/21 22:53 01/25/21 23:05 Range/Units White Blood Count 5.5 4.3-11.0 10^3/uL Red Blood Count 5.14 4.30-5.52 10^6/uL Hemoglobin 15.5 13.3-17.7 g/dL Hematocrit 46 40-54 % Mean Corpuscular Volume 90 80-99 fL Mean Corpuscular Hemoglobin 30 25-34 pg Mean Corpuscular Hemoglobin Concent 34 32-36 g/dL Red Cell Distribution Width 11.8 10.0-14.5 % Platelet Count 219 130-400 10^3/uL Mean Platelet Volume 9.9 9.0-12.2 fL Immature Granulocyte % (Auto) 1 % Neutrophils (%) (Auto) 49 42-75 % Lymphocytes (%) (Auto) 39 12-44 % Monocytes (%) (Auto) 9 0-12 % Eosinophils (%) (Auto) 2 0-10 % Basophils (%) (Auto) 1 0-10 % Neutrophils # (Auto) 2.7 1.8-7.8 10^3/uL Lymphocytes # (Auto) 2.1 1.0-4.0 10^3/uL Monocytes # (Auto) 0.5 0.0-1.0 10^3/uL Eosinophils # (Auto) 0.1 0.0-0.3 10^3/uL Basophils # (Auto) 0.0 0.0-0.1 10^3/uL Immature Granulocyte # (Auto) 0.1 0.0-0.1 10^3/uL Prothrombin Time 13.7 12.2-14.7 SEC INR Comment 1.0 0.8-1.4 Activated Partial Thromboplast Time 29 24-35 SEC Sodium Level 142 135-145 MMOL/L Potassium Level 3.9 3.6-5.0 MMOL/L Chloride Level 106 98-107 MMOL/L Carbon Dioxide Level 22 21-32 MMOL/L Anion Gap 14 5-14 MMOL/L Blood Urea Nitrogen 17 7-18 MG/DL Creatinine 0.87 0.60-1.30 MG/DL Estimat Glomerular Filtration Rate 102 BUN/Creatinine Ratio 20 Glucose Level 101 70-105 MG/DL Calcium Level 8.9 8.5-10.1 MG/DL Corrected Calcium 8.6 8.5-10.1 MG/DL Magnesium Level 2.1 1.6-2.4 MG/DL Total Bilirubin 0.5 0.1-1.0 MG/DL Aspartate Amino Transf (AST/SGOT) 18 5-34 U/L Alanine Aminotransferase (ALT/SGPT) 33 0-55 U/L Alkaline Phosphatase 85 40-136 U/L Myoglobin 42.8 10.0-92.0 NG/ML Troponin I < 0.028 <0.028 NG/ML B-Type Natriuretic Peptide < 10.0 <100.0 PG/ML Total Protein 6.6 6.4-8.2 GM/DL Albumin 4.4 3.2-4.5 GM/DL Urine Opiates Screen NEGATIVE NEGATIVE Urine Oxycodone Screen NEGATIVE NEGATIVE Urine Methadone Screen NEGATIVE NEGATIVE Urine Propoxyphene Screen NEGATIVE NEGATIVE Urine Barbiturates Screen NEGATIVE NEGATIVE Ur Tricyclic Antidepressants Screen NEGATIVE NEGATIVE Urine Phencyclidine Screen NEGATIVE NEGATIVE Urine Amphetamines Screen NEGATIVE NEGATIVE Urine Methamphetamines Screen NEGATIVE NEGATIVE Urine Benzodiazepines Screen NEGATIVE NEGATIVE Urine Cocaine Screen NEGATIVE NEGATIVE Urine Cannabinoids Screen POSITIVE H NEGATIVE My Orders Orders - RASHARD LORA DO BNP (01/25/21 22:42) Cbc With Automated Diff (01/25/21 22:42) Comprehensive Metabolic Panel (01/25/21 22:42) Drug Screen Stat (Urine) (01/25/21 22:42) Troponin I (01/25/21 22:42) Magnesium (01/25/21 22:42) Chest 1 View, Ap/Pa Only (01/25/21 22:42) Ekg Tracing (01/25/21 22:42) Myoglobin Serum (01/25/21 22:42) Protime With Inr (01/25/21 22:42) Partial Thromboplastin Time (01/25/21 22:42) Monitor-Rhythm Ecg Trace Only (01/25/21 22:42) Vital Signs/I&O 01/25/21 22:27 Temp 36.9 Pulse 73 Resp 18 B/P (MAP) 142/98 (113) Pulse Ox 97 O2 Delivery Room Air Blood Pressure Mean: 113 Departure Impression Primary Impression: LEFT ANTERIOR CHEST WALL PAIN Additional Impression: Anxiety Disposition: 01 HOME, SELF-CARE Condition: Stable Departure-Patient Inst. [place] [facility] [place] Instructions: Anxiety, Adult ED, Costochondritis (DC) Add. Discharge Instructions: TYLENOL AND MOTRIN NEEDED FOR PAIN FOLLOW UP WITH [facility] THIS WEEK FOR FURTHER CARE All discharge instructions reviewed with patient and/or family. Voiced understanding. Scripts No Active Prescriptions or Reported Meds RASHARD LORA DO Jan 25, 2021 23:40
[2021-01-26] VITALS: BP 135/89
--- NOTE | 2021-01-26 06:10 | Diagnostic Imaging Report ---
Clinical indication: Patient with chest pain. Exam: Portable chest x-ray upright view. Comparisons: Chest x-ray dated 01/09/2021. Findings: Lungs/pleura: Lungs are clear. There is no pneumothorax. There is no pleural effusion. Mediastinum: Unremarkable. Pulmonary vasculature: Unremarkable. Heart: Unremarkable. Bones/extrathoracic soft tissue: Unremarkable. Impression: There is no radiographic evidence of acute cardiopulmonary process. Dictated by: Dictated on workstation # [id number]
== END 2021-01-26 | disposition home or self-care (01) ==
LOC: EDUNIT# 21:40 → ER 21:44
DX: R07.89 Other chest pain (principal); F41.9 Anxiety disorder, unspecified; I10 Essential (primary) hypertension; Z87.891 Personal history of nicotine dependence
CPT/HCPCS: 36415; 71045; 80053; 80306; 83735; 83874; 83880; 84484; 85025; 85610; 85730; 93005

== ENCOUNTER 2022-05-24 13:53 | Emergency (ER) | payer BC ==
[~2022-05-24] VITALS: Ht 185.4 cm; Wt 138.0 kg
--- NOTE | 2022-05-24 15:10 | Diagnostic Imaging Report ---
INDICATION: Shortness of breath. Comparison with 01/25/2021. FINDINGS: Portable chest. The lungs are well aerated and clear. There is no air trapping. The heart is not enlarged. No pulmonary edema. No hilar adenopathy. No pneumothorax or pleural effusion. IMPRESSION: Normal portable chest. Dictated by: Dictated on workstation # [id number]
[2022-05-24] MEDS ORDERED: BENZ100C18 PO (15:32)
--- NOTE | 2022-05-24 15:33 | ED Cough/URI ---
General Chief Complaint: COVID19 Suspect/Confirmed Stated Complaint: COVID Nursing Triage Note: PT TO RM 10 WITH CC OF SOB, DIZZINESS AND CONGESTION. PT STATES TESTED POSITIVE FOR COVID 05/21/22. History of Present Illness Date Seen by Provider: May 24, 2022 Time Seen by Provider: 13:56 Initial Comments Patient is a 31-year-old male who presents to the emergency department for evaluation of shortness of breath, dizziness, and nasal congestion that been present for 3 to 4 days. Patient tested positive for COVID on 05/21. He denies any chest pain. Has not taken anything for the symptoms today. Allergies and Home Medications Allergies Coded Allergies: No Known Drug Allergies (Unverified , 12/06/18) Patient Home Medication List Home Medication List Reviewed: Yes Benzonatate (Tessalon Perles) 100 Mg Capsule, 200 MG PO Q8H PRN for COUGH Prescribed by: Grupo Crum on 05/24/22 1532 Review of Systems Review of Systems Constitutional: see HPI, dizziness EENTM: no symptoms reported Respiratory: see HPI, cough, short of breath Cardiovascular: no symptoms reported Gastrointestinal: no symptoms reported Genitourinary: no symptoms reported Musculoskeletal: no symptoms reported Skin: no symptoms reported Past Imhcelj-Qrzsnq-Ocsjoi Hx Patient Social History Tobacco Use?: No Substance use?: Yes Substance type: Marijuana Substance frequency: Rarely Alcohol Use?: No Pt feels they are or have been: No Immunizations Up To Date Tetanus Booster (TDap): Less than 5yrs Seasonal Allergies Seasonal Allergies: No Past Medical History Surgery/Hospitalization HX: seen in ER last week for similar c/o Surgeries: Yes (BILAT MENISCUS REPAIR, wisdom teeth) Orthopedic Respiratory: No Cardiac: No Neurological: No Genitourinary: No Gastrointestinal: No Musculoskeletal: No Endocrine: No HEENT: No Cancer: No Psychosocial: Yes Anxiety Integumentary: No Blood Disorders: No Physical Exam Vital Signs - First Documented 05/24/22 13:56 Temp 37.7 Pulse 87 Resp 20 B/P (MAP) 186/111 (136) Pulse Ox 97 O2 Delivery Room Air Capillary Refill : Less Than 3 Seconds Height: 6'2.00" Weight: 295lbs. oz. 133.125231to; 40.00 BMI Method:Stated General Appearance: WD/WN, no apparent distress HEENT: PERRL/EOMI, normal ENT inspection, TMs normal, pharynx normal Neck: non-tender, full range of motion, supple, normal inspection Respiratory: chest non-tender, lungs clear, normal breath sounds, no respiratory distress, no accessory muscle use Cardiovascular: regular rate, rhythm Gastrointestinal: normal bowel sounds, non tender, soft Extremities: normal range of motion, non-tender, normal inspection, no pedal edema Neurologic/Psychiatric: no motor/sensory deficits, alert, normal mood/affect, oriented x 3 Skin: normal color, warm/dry Procedures/Interventions Suture Size: 5-0 Progress/Results/Core Measures Suspected Sepsis SIRS Temperature: Pulse: 87 Respiratory Rate: 20 Blood Pressure 186 /111 Mean: 136 Results/Orders My Orders Orders - GRUPO CRUM APRN Chest 1 View, Ap/Pa Only (05/24/22 14:24) Vital Signs/I&O 05/24/22 05/24/22 13:56 15:37 Temp 37.7 Pulse 87 79 Resp 20 18 B/P (MAP) 186/111 (136) 168/109 Pulse Ox 97 97 O2 Delivery Room Air Room Air Capillary Refill : Less Than 3 Seconds Blood Pressure Mean: 136 Progress Note : Progress Note Patient is nontoxic and well-hydrated on exam. No adventitious lung sounds or increased work of breathing noted. Vital signs are reassuring. No focal neurologic deficits appreciated. Chest x-ray obtained which is acutely negative. Patient symptomology are consistent with known COVID symptoms. No indication for further diagnostic testing at this time. Follow-up with PCP. Return precautions for urgent symptomology discussed. Patient verbalized understanding. Departure Impression Primary Impression: COVID-19 Disposition: 01 HOME, SELF-CARE Condition: Stable Departure-Patient Inst. Decision time for Depature: 15:30 Referrals: MELITON ZARATE DO (PCP/Family) Primary Care Physician Patient Instructions: COVID-19 (DC) Scripts Benzonatate (TESSALON PERLES) 100 Mg Capsule 200 MG PO Q8H PRN for COUGH for 5 Days, #30 CAP 0 Refills Prov: GRUPO CRUM APRN 05/24/22 GRUPO CRUM APRN May 24, 2022 15:32
[2022-05-24 15:37] VITALS: BP 168/109
== END 2022-05-24 15:37 | disposition home or self-care (01) ==
LOC: EDUNIT# 13:53 → ER 13:56
DX: U07.1 COVID-19 (principal)
CPT/HCPCS: 71045

== ENCOUNTER 2022-08-16 09:58 | Emergency (ER) | payer BC ==
[~2022-08-16 09:58] MED LIST: BENZ100C18 PO
--- NOTE | 2022-08-16 10:17 | ED Chest Pain ---
General Chief Complaint: Chest Pain Stated Complaint: CHEST AND LT ARM PAIN Source: patient Exam Limitations: no limitations History of Present Illness Date Seen by Provider: Aug 16, 2022 Time Seen by Provider: 10:00 Initial Comments 32yoM with no pertinent PMH coming in due to chest pain. Pain started yesterday and radiates to his left shoulder. He states it feels similar to indigestion he had in the past. When he takes Tums it does help with the pain which she last took about an hour prior to arrival. He denies any cardiac history, no history of DVT or PE, no hemoptysis, no lower extremity swelling or pain, no recent surgery within the past month, no recent long travel, no shortness of breath, fever, cough, nausea, vomiting, diarrhea, or any other concerns. He does not smoke cigarettes. Allergies and Home Medications Allergies Coded Allergies: No Known Drug Allergies (Unverified , 12/06/18) Patient Home Medication List Home Medication List Reviewed: Yes Benzonatate (Tessalon Perles) 100 Mg Capsule, 200 MG PO Q8H PRN for COUGH Prescribed by: Brandon Crum on 05/24/22 1532 Review of Systems Review of Systems Constitutional: No fever EENTM: No Symptoms Reported Respiratory: No Symptoms Reported Cardiovascular: See HPI Gastrointestinal: No Symptoms Reported Genitourinary: No Symptoms Reported Musculoskeletal: no symptoms reported Skin: no symptoms reported Psychiatric/Neurological: No Symptoms Reported Endocrine: No Symptoms Reported Hematologic/Lymphatic: No Symptoms Reported All Other Systems Reviewed Negative Unless Noted: Yes Past Ygcfvsb-Xaomii-Yajmof Hx Patient Social History Tobacco Use?: No Substance use?: Yes Substance type: Marijuana Alcohol Use?: Yes Alcohol Frequency: Once in a while Pt feels they are or have been: No Immunizations Up To Date Tetanus Booster (TDap): Less than 5yrs Influenza Vaccine Up-to-Date: No; Not Current First/Initial COVID19 Vaccinat: 2020 Second COVID19 Vaccination Kevin: NO Third COVID19 Vaccination Date: NO 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 oz. [id number]; 40.00 BMI Method:Stated General Appearance: No Apparent Distress, WD/WN HEENT: PERRL/EOMI, Normal ENT Inspection, Pharynx Normal Neck: Full Range of Motion, Normal Inspection, Non Tender, Supple Respiratory: Chest Non Tender, Lungs Clear, Normal Breath Sounds, No Accessory Muscle Use, No Respiratory Distress Cardiovascular: Regular Rate, Rhythm, No Edema, Normal Peripheral Pulses Gastrointestinal: Normal Bowel Sounds, Non Tender, Soft Extremity: Normal Capillary Refill, Normal Inspection, Normal Range of Motion, Non Tender, No Calf Tenderness, No Pedal Edema Neurologic/Psychiatric: Alert, No Motor/Sensory Deficits, Normal Mood/Affect Skin: Normal Color, Warm/Dry Lymphatic: No Adenopathy Procedures/Interventions Suture Size: 5-0 Progress/Results/Core Measures Results/Orders Lab Results Laboratory Tests Test 08/16/22 10:10 Range/Units White Blood Count 4.9 4.3-11.0 10^3/uL Red Blood Count 5.34 4.30-5.52 10^6/uL Hemoglobin 15.9 13.3-17.7 g/dL Hematocrit 48 40-54 % Mean Corpuscular Volume 89 80-99 fL Mean Corpuscular Hemoglobin 30 25-34 pg Mean Corpuscular Hemoglobin Concent 34 32-36 g/dL Red Cell Distribution Width 12.1 10.0-14.5 % Platelet Count 215 130-400 10^3/uL Mean Platelet Volume 9.7 9.0-12.2 fL Immature Granulocyte % (Auto) 2 % Neutrophils (%) (Auto) 58 42-75 % Lymphocytes (%) (Auto) 28 12-44 % Monocytes (%) (Auto) 10 0-12 % Eosinophils (%) (Auto) 2 0-10 % Basophils (%) (Auto) 1 0-10 % Neutrophils # (Auto) 2.9 1.8-7.8 10^3/uL Lymphocytes # (Auto) 1.4 1.0-4.0 10^3/uL Monocytes # (Auto) 0.5 0.0-1.0 10^3/uL Eosinophils # (Auto) 0.1 0.0-0.3 10^3/uL Basophils # (Auto) 0.0 0.0-0.1 10^3/uL Immature Granulocyte # (Auto) 0.1 0.0-0.1 10^3/uL Sodium Level 138 135-145 MMOL/L Potassium Level 3.8 3.6-5.0 MMOL/L Chloride Level 100 98-107 MMOL/L Carbon Dioxide Level 27 21-32 MMOL/L Anion Gap 11 5-14 MMOL/L Blood Urea Nitrogen 16 7-18 MG/DL Creatinine 0.93 0.60-1.30 MG/DL Estimat Glomerular Filtration Rate 111 BUN/Creatinine Ratio 17 Glucose Level 101 70-105 MG/DL Calcium Level 9.7 8.5-10.1 MG/DL Corrected Calcium 9.3 8.5-10.1 MG/DL Total Bilirubin 0.8 0.1-1.0 MG/DL Aspartate Amino Transf (AST/SGOT) 23 5-34 U/L Alanine Aminotransferase (ALT/SGPT) 48 0-55 U/L Alkaline Phosphatase 77 40-136 U/L Total Protein 6.9 6.4-8.2 GM/DL Albumin 4.5 3.2-4.5 GM/DL Lipase 22 8-78 U/L My Orders Orders - SAYDA MITCHELL MD Ekg Tracing (08/16/22 10:10) Chest 1 View, Ap/Pa Only (08/16/22 10:18) Ekg Tracing (08/16/22 10:18) Lidocaine 2% Viscous 15 Ml (Xylocaine Vi (08/16/22 10:30) Famotidine Tablet (Pepcid Tablet) (08/16/22 10:18) Antacid Suspension (Mylanta Suspension (08/16/22 10:30) Cbc With Automated Diff (08/16/22 10:22) Comprehensive Metabolic Panel (08/16/22 10:22) Lipase (08/16/22 10:22) Troponin I Janes (08/16/22 10:22) Medications Given in ED Current Medications Medications Dose Ordered Sig/Sameer Route Start Time Stop Time Status Last Admin Dose Admin Al Hydrox/Mg Hydrox/Simethicone 30 ml ONCE ONCE PO 08/16/22 10:30 08/16/22 10:31 DC 08/16/22 10:33 30 ML Lidocaine HCl 15 ml ONCE ONCE PO 08/16/22 10:30 08/16/22 10:31 DC 08/16/22 10:33 15 ML Vital Signs/I&O 08/16/22 10:06 Temp 37.0 Pulse 79 Resp 18 B/P (MAP) 150/87 (108) Progress Progress Note : Progress Note 32-year-old male with above history coming in due to chest pain. ABCs were intact and vitals were stable on presentation. Physical exam reassuring including no focal abnormalities. EKG ordered and interpreted by me showing no acute ischemic changes and appears similar to prior EKG from 2020. Chest x-ray ordered and interpreted by me showing no obvious pneumonia or pneumothorax with normal cardiac silhouette. Also appears similar to his prior chest x-ray. An IV was placed and basic labs were obtained including cardiac biomarkers. These were reassuring including a negative troponin. He was given a GI cocktail given clinically he states he has been improving with Tums. He has pain-free at this time. Symptoms not consistent with ACS due to risk factors as well as his work- up being negative. He is low risk for PE per [place] criteria and is PERC nega tive. I believe he is otherwise stable for discharge with outpatient follow-up. He was sent home with strict return precautions. Initial ECG Impression Date: Aug 16, 2022 Initial ECG Impression Time: 10:21 Initial ECG Rate: 62 Initial ECG Rhythm: Normal Sinus Comment Narrow QRS, normal axis, no significant ST changes, T wave inversion in lead III which is nonspecific, appears almost identical to prior EKG from 2020 Diagnostic Imaging Diagonstic Imaging: Xray (chest) Departure Impression Primary Impression: Chest pain Qualified Codes: R07.82 - Intercostal pain Disposition: HOME, SELF-CARE Condition: Stable Departure-Patient Inst. Referrals: MELITON ZARATE DO (PCP/Family) Primary Care Physician Patient Instructions: Chest Pain (DC) Add. Discharge Instructions: Based on her work-up today, it does not appear like the cause of your chest pain is anything that will be life-threatening, fortunately. Typically the cause is often related to irritation in your esophagus or stomach, especially given the improvement of your symptoms with the Tums. We will start you on a medicine to help with reflux type symptoms to see if this improves your symptoms. Follow-up with your regular doctor if things are not improving. Scripts Pantoprazole Sodium (Pantoprazole Sodium) 20 Mg Tablet. 20 MG PO DAILY for 30 Days, #30 TAB Prov: ASYDA MITCHELL MD 08/16/22 Work/School Note: Work Release Form Date Seen in the Emergency Department: Aug 16, 2022 Return to Work: Aug 17, 2022 Restrictions: No Restrictions SAYDA MITCHELL MD Aug 16, 2022 10:17
[2022-08-16] MEDS ORDERED: FAMOTIDINE 20 MG (PEPCID) TABLET PO STA (10:18)
[2022-08-16 10:27] LABS: BASOPHILS % (AUTO) 1 % (0-10); EOSINOPHILS # (AUTO) 0.1 10^3/uL (0.0-0.3); EOSINOPHILS % (AUTO) 2 % (0-10); HEMATOCRIT 48 % (40-54); HEMOGLOBIN 15.9 g/dL (13.3-17.7); LYMPHOCYTES # (AUTO) 1.4 10^3/uL (1.0-4.0); LYMPHOCYTES % (AUTO) 28 % (12-44); MEAN CORPUSCULAR HEMOGLOBIN 30 pg (25-34); MEAN CORPUSCULAR HGB CONC 34 g/dL (32-36); MEAN CORPUSCULAR VOLUME 89 fL (80-99); MEAN PLATELET VOLUME 9.7 fL (9.0-12.2); MONOCYTES # (AUTO) 0.5 10^3/uL (0.0-1.0); MONOCYTES % (AUTO) 10 % (0-12); NEUTROPHILS # (AUTO) 2.9 10^3/uL (1.8-7.8); NEUTROPHILS % (AUTO) 58 % (42-75); PLATELET COUNT 215 10^3/uL (130-400); WHITE BLOOD COUNT 4.9 10^3/uL (4.3-11.0)
[2022-08-16] MEDS ORDERED: LIDOCAINE 2% VISCOUS 15 ML UDC PO ONE (10:30)
[2022-08-16] MEDS ORDERED: ANTACID SUSP 30 ML UDC (MYLANTA) PO ONE (10:30)
[2022-08-16 10:31] LABS: ALBUMIN 4.5 GM/DL (3.2-4.5)
[2022-08-16 10:32] LABS: CHLORIDE 100 MMOL/L (98-107); POTASSIUM 3.8 MMOL/L (3.6-5.0); SODIUM 138 MMOL/L (135-145)
[2022-08-16 10:33] LABS: CALCIUM 9.7 MG/DL (8.5-10.1)
[2022-08-16 10:34] LABS: GLUCOSE 101 MG/DL (70-105); TOTAL PROTEIN 6.9 GM/DL (6.4-8.2)
[2022-08-16 10:35] LABS: CARBON DIOXIDE 27 MMOL/L (21-32)
[2022-08-16 10:36] LABS: BILIRUBIN,TOTAL 0.8 MG/DL (0.1-1.0)
[2022-08-16 10:37] LABS: ALKALINE PHOSPHATASE 77 U/L (40-136)
[2022-08-16 10:38] LABS: CREATININE SERUM 0.93 MG/DL (0.60-1.30); GFR ESTIMATED 111
[2022-08-16 10:39] LABS: BUN/CREATININE RATIO 17
[2022-08-16 10:41] LABS: ALANINE AMINOTRANSFERASE 48 U/L (0-55); LIPASE 22 U/L (8-78)
[2022-08-16] MEDS ORDERED: PANT20TA18 PO (10:51)
--- NOTE | 2022-08-16 10:56 | Diagnostic Imaging Report ---
INDICATION: Chest pain. COMPARISON: 05/24/2022. FINDINGS: The lungs are clear. There is no failure, effusion, or pneumothorax. IMPRESSION: Unremarkable frontal chest radiographs. Dictated by: Dictated on workstation # [id number]
[2022-08-16 11:57] VITALS: BP 123/81
== END 2022-08-16 11:59 | disposition home or self-care (01) ==
LOC: EDUNIT# 09:58 → ER 09:59
DX: R07.9 Chest pain, unspecified (principal); Z28.311 Partially vaccinated for COVID-19
CPT/HCPCS: 36415; 71045; 80053; 83690; 84484; 85025; 93005